=== PATIENT | male | born 1970 | race Two or more races ===

== ENCOUNTER 2021-06-29 11:55 | Emergency (ER) | payer SELFPAY ==
[2021-06-29] MEDS ORDERED: Sodium Chloride 0.9% 10 ML Syringe FLUSH PRN (12:25)
[2021-06-29] MEDS ORDERED: Iopamidol 755 Mg/ML 100 ML Bottle IVPUSH ONE (13:03)
[2021-06-29] MEDS ORDERED: Sodium Chloride 0.9% 100 ML IV SCH (13:15)
[2021-06-29] MEDS ORDERED: Gadobenate Dimeglumine 529 MG/ML 20 ML SDV IVPUSH ONE (13:28)
[2021-06-29] MEDS ORDERED: Sodium Chloride 0.9% 10 ML Syringe FLUSH SCH (13:30)
[2021-06-29 13:57] LABS: CORONAVIRUS COVID-19 NAA NEGATIVE (NEGATIVE)
[2021-06-29] MEDS ORDERED: levETIRAcetam 2,000 MG in Sodium Chloride 0.9% 100 ML IV ONE (15:14)
== END 2021-06-29 16:30 | disposition home or self-care (01) ==
LOC: JD.ED 11:55
DX: R53.1 Weakness (principal); R22.0 Localized swelling, mass and lump, head; Z72.0 Tobacco use; Z20.822 Contact with and (suspected) exposure to COVID-19
CPT/HCPCS: 0240U; 36415; 70450; 70498; 70553; 80053; 83735; 85025; 96365; 96375; 99284; A9577; J1953; Q9967

== ENCOUNTER 2022-07-23 12:56 | Emergency (ER) | payer SELFPAY ==
[2022-07-23 14:43] LABS: ESTIMATED GFR 105 mL/min (>60)
== END 2022-07-23 15:28 | disposition home or self-care (01) ==
LOC: JD.ED 12:56
DX: N20.0 Calculus of kidney (principal); Z72.0 Tobacco use; Z86.16 Personal history of COVID-19
CPT/HCPCS: 36415; 74176; 74176-26; 80053; 81001; 85025; 86140; 99284

== ENCOUNTER 2022-08-16 02:13 | Emergency (ER) | payer SELFPAY ==
[2022-08-16] MEDS ORDERED: Morphine 4 MG/ML Syringe IVPUSH ONE (02:42)
[2022-08-16] MEDS ORDERED: Ondansetron 4 MG/2 ML SDV IVPUSH ONE (02:42)
[2022-08-16] MEDS ORDERED: Sodium Chloride 0.9% 1,000 ML IV SCH (02:45)
== END 2022-08-16 06:03 | disposition home or self-care (01) ==
LOC: JD.ED 02:13
DX: N13.2 Hydronephrosis with renal and ureteral calculous obstruction (principal); Z72.0 Tobacco use; Z86.16 Personal history of COVID-19
CPT/HCPCS: 36415; 74177; 80053; 81001; 83605; 83690; 85025; 96361; 96374; 96375; 99284; J2270; J2405; J7030